=== PATIENT | female | born 1985 | race Caucasian/White ===

== ENCOUNTER 2017-01-19 09:18 | Day surgery (SDC) | payer OTHER ==
[~2017-01-19] VITALS: Ht 165.1 cm; Wt 59.9 kg
[~2017-01-19 09:18] MED LIST: BACTRIM,SEPT1 TABLET PO; DOXYCYCLINE HY100 MG PO; FIRST-PROGESTE200 MG VG; IBUPROFEN400 MG PO; METRONIDAZOLE500 MG PO; NORCO 5/3251 TABLET PO; PERCOCET; PHENERGAN; PRENATAL 1 PLU1 EACH; PRENATAL TABLE1 EAC3 PO; PRILOSEC20 MG PO; PROTONIX; TUMS500 MG PO
[2017-01-19 09:53] VITALS: BP 121/67
[2017-01-19] MEDS ORDERED: NORCO 5/3251 TABLET PO (13:43)
[2017-01-19] MEDS ORDERED: MOTRIN800 MG PO (13:43)
[2017-01-19 14:30] VITALS: BP 132/66
[2017-01-19 15:17] VITALS: BP 133/76
== END 2017-01-19 15:27 | disposition home or self-care (01) ==
LOC: SDC 09:18
PROC: 0U5B8ZZ Destruction of Endometrium, Via Natural or Artificial Opening Endoscopic (ICD-10-PCS; principal; 2017-01-19)
PROC: 0U574ZZ Destruction of Bilateral Fallopian Tubes, Percutaneous Endoscopic Approach (ICD-10-PCS; principal; 2017-01-19)
DX: Z30.2 Encounter for sterilization (principal); N92.1 Excessive and frequent menstruation with irregular cycle; F17.210 Nicotine dependence, cigarettes, uncomplicated; Z82.5 Family history of asthma and other chronic lower respiratory diseases; Z82.49 Family history of ischemic heart disease and other diseases of the circulatory system; Z83.2 Family history of diseases of the blood and blood-forming organs and certain disorders involving the immune mechanism; Z83.42 Family history of familial hypercholesterolemia; Z80.49 Family history of malignant neoplasm of other genital organs; Z80.1 Family history of malignant neoplasm of trachea, bronchus and lung
CPT/HCPCS: 88305; J0330; J0690; J1100; J1170; J1885; J2250; J2405; J2710; J3010; J7120; S0020

== ENCOUNTER 2017-06-25 05:28 | Day surgery (SDC) | payer OTHER ==
[~2017-06-25] VITALS: Ht 165.1 cm; Wt 59.0 kg
[~2017-06-25 05:28] MED LIST changes: +MOTRIN800 MG PO; +TESSALON PERLE100 MG PO
[2017-06-25 05:54] VITALS: BP 152/65
[2017-06-25 13:06] VITALS: BP 115/73
[2017-06-25 16:57] VITALS: BP 116/72
[2017-06-25 19:43] VITALS: BP 110/67
[2017-06-25 23:24] VITALS: BP 123/68
[2017-06-26 03:29] VITALS: BP 118/61
[2017-06-26 06:51] LABS: HEMATOCRIT 32.5 % (36.0-46.0); MCH 34.2 PG (29.0-34.0); MCHC 33.8 G/DL (30.0-36.0); MCV 100.9 FL (83-99); MEAN PLAT.VOLUME 10.2 uM^3 (9.5-12.4); PLATELET COUNT 220 K/uL (156-360); RBC DIS.WIDTH-CV 11.9 % (11.8-14.6); RBC DIS.WIDTH-SD 44.4 % (39-53); WHITE BLOOD COUNT 12.6 K/uL (4.1-10.2)
[2017-06-26 07:16] LABS: ANION GAP 4 MEQ/L (2-14); CHLORIDE 102 MEQ/L (99-109); GFR ESTIMATE (CALCULATED) > 59 mL/min/; GLUCOSE 91 mg/dL (70-99); POTASSIUM 4.2 MEQ/L (3.7-5.4); SAMPLE HEMOLYSIS CHECK 0; SAMPLE ICTERIC CHECK 0; SAMPLE LIPEMIA CHECK 0; SODIUM 137 MEQ/L (136-147); UREA NITROGEN (BUN) 6 mg/dL (9-23)
[2017-06-26 07:20] VITALS: BP 112/68
[2017-06-26 07:21] LABS: RED BLOOD COUNT 3.22 M/uL (3.80-5.20)
[2017-06-26] MEDS ORDERED: MOTRIN600 MG PO (08:24)
[2017-06-26] MEDS ORDERED: ENDOCET 5-3251 EACH PO (08:24)
== END 2017-06-26 09:50 | disposition home or self-care (01) ==
LOC: SDC → 2EAST 10:20 → 2SOUTH 10:20 → ENRESERV 10:25 → SDC 11:57 → ENRESERV 12:00 → 2EAST 12:56 → SDC 14:27 → 2EAST 06-26 09:50
PROVIDERS: Obstetrics & Gynecology
DX: N87.9 Dysplasia of cervix uteri, unspecified (principal); N83.8 Other noninflammatory disorders of ovary, fallopian tube and broad ligament; N92.0 Excessive and frequent menstruation with regular cycle; N94.6 Dysmenorrhea, unspecified; Z98.51 Tubal ligation status; J45.909 Unspecified asthma, uncomplicated; Z80.49 Family history of malignant neoplasm of other genital organs; Z80.1 Family history of malignant neoplasm of trachea, bronchus and lung; Z87.891 Personal history of nicotine dependence
CPT/HCPCS: 80048; 85027; 87086; 88302; 88307; G0378; J0131; J0690; J1100; J1170; J1885; J2250; J2270; J2405; J2704; J2710; J3010; J3475; J7120; Q0175; S0020

== ENCOUNTER 2017-12-01 16:39 | Emergency (ER) | payer OTHER ==
[~2017-12-01] VITALS: Ht 165.1 cm; Wt 57.7 kg
[~2017-12-01 16:39] MED LIST changes: +ENDOCET 5-3251 EACH PO; +MOTRIN600 MG PO
[2017-12-01 17:33] LABS: BASOPHIL (%) 0.4 % (0-1); EOSINOPHIL (%) 0.9 % (0-5); EOSINOPHIL COUNT 0.1 K/uL (0-0.3); HEMATOCRIT 40.3 % (36.0-46.0); HEMOGLOBIN 13.8 G/DL (11.9-15.5); IMMATURE GRANULOCYTE (%) 0.2 % (0.0-0.7); LYMPHOCYTE (%) 25.6 % (15-42); LYMPHOCYTE COUNT 1.5 K/uL (1.0-2.8); MCH 32.5 PG (29.0-34.0); MCHC 34.2 G/DL (30.0-36.0); MCV 94.8 FL (83-99); MONOCYTE (%) 4.4 % (3-12); MONOCYTE COUNT 0.3 K/uL (0-0.8); NEUTROPHIL (%) 68.5 % (45-76); NEUTROPHIL COUNT 3.9 K/uL (1.8-6.4); PLATELET COUNT 211 K/uL (156-360); RBC DIS.WIDTH-CV 12.9 % (11.8-14.6); RBC DIS.WIDTH-SD 45.1 % (39-53); RED BLOOD COUNT 4.25 M/uL (3.80-5.20); WHITE BLOOD COUNT 5.7 K/uL (4.1-10.2)
[2017-12-01 17:45] LABS: ALBUMIN 4.6 G/DL (3.2-4.8); CHLORIDE 100 MEQ/L (99-109); POTASSIUM 3.4 MEQ/L (3.7-5.4); SODIUM 133 MEQ/L (136-147); TOTAL BILIRUBIN 1.4 MG/DL (0.0-1.0)
[2017-12-01 17:51] LABS: ALKALINE PHOSPHATASE 89 IU/L (3-129); ALT (GPT) 11 IU/L (3-49); AST (GOT) 16 IU/L (2-34); CREATININE 0.8 MG/DL (0.6-1.3); GFR ESTIMATE (CALCULATED) > 59 mL/min/; GLUCOSE 92 mg/dL (70-99); TOTAL PROTEIN 7.4 G/DL (6.4-8.3); UREA NITROGEN (BUN) 10 mg/dL (9-23)
[2017-12-01] MEDS ORDERED: MOTRIN600 MG PO (19:13)
[2017-12-01] MEDS ORDERED: KEFLEX500 MG PO (19:13)
[2017-12-01] MEDS ORDERED: ZOFRAN ODT4 MG PO (19:13)
[2017-12-01] MEDS ORDERED: PERCOCET 5/31 TABLET PO (19:13)
[2017-12-01] MEDS ORDERED: BACTRIM,SEPT1 TABLET PO (19:13)
[2017-12-01 19:33] VITALS: BP 124/80
== END 2017-12-01 19:41 | disposition home or self-care (01) ==
LOC: EME 16:39
PROVIDERS: Nurse Practitioner Acute Care
DX: N61.0 Mastitis without abscess (principal); Z85.41 Personal history of malignant neoplasm of cervix uteri; J45.909 Unspecified asthma, uncomplicated; F41.9 Anxiety disorder, unspecified; Z86.73 Personal history of transient ischemic attack (TIA), and cerebral infarction without residual deficits; Z90.710 Acquired absence of both cervix and uterus; F17.200 Nicotine dependence, unspecified, uncomplicated
CPT/HCPCS: 76642; 80053; 81003; 83605; 85025; 99281; 99285; J2405; J3010; J7030